=== PATIENT | female | born 1995 | race African-American/Black ===

== ENCOUNTER 2020-11-28 14:23 | Emergency (ER) | payer OTHER ==
[~2020-11-28] VITALS: Ht 157.5 cm; Wt 104.3 kg
[2020-11-28] MEDS ORDERED: BACTRIM DS TAB1 EACH PO (15:27)
[2020-11-28] MEDS ORDERED: ULTRAM 50MG TAB50 MG PO (15:27)
[2020-11-28 17:01] VITALS: BP 195/121
== END 2020-11-28 17:13 | disposition home or self-care (01) ==
LOC: ER 14:23
DX: L02.415 Cutaneous abscess of right lower limb (principal); L03.115 Cellulitis of right lower limb